=== PATIENT | female | born 2000 | race Two or more races ===

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

== ENCOUNTER 2023-10-28 22:08 | Emergency (ER) | payer MEDICAID ==
[~2023-10-28] VITALS: Ht 170.2 cm; Wt 61.0 kg
[2023-10-28 22:12] VITALS: BP 132/79; PULSE 114; RESP 18; TEMP 98.7; O2SAT 100
[2023-10-28] MEDS ORDERED: IBUP-2437 MT (23:36)
[2023-10-29] MEDS ORDERED: KETOROLAC 15MG/ML VIAL IM ONE (00:15)
== END 2023-10-29 00:18 | disposition home or self-care (01) ==
LOC: ER 22:08
DX: M79.10 Myalgia, unspecified site (principal); F41.9 Anxiety disorder, unspecified; V49.49XA Driver injured in collision with other motor vehicles in traffic accident, initial encounter; Y93.89 Activity, other specified; Y92.89 Other specified places as the place of occurrence of the external cause; Y99.8 Other external cause status
CPT/HCPCS: 99283